=== PATIENT | male | born 1970 | race Caucasian/White ===

== ENCOUNTER → 2016-12-31 | Outpatient (CLI) | payer BC ==
[~2016-12-31] MED LIST: ALEVE220 MG PO; ASPIR-LOW81 MG PO; CLONAZEPAM0.5 MG PO; KLONOPIN1 MG PO; ZETIA10 MG PO
== END | disposition home or self-care (01) ==
LOC: RES 09:00
DX: R06.00 Dyspnea, unspecified (principal); R94.2 Abnormal results of pulmonary function studies
CPT/HCPCS: 94060; 94070; 94729